=== PATIENT | female | born 1985 | race African-American/Black ===

== ENCOUNTER 2016-12-21 23:12 | Emergency (ER) | payer MEDICAID ==
[~2016-12-21] VITALS: Ht 165.1 cm; Wt 89.0 kg
[~2016-12-21 23:12] MED LIST: IRONCAP2 PO; LEVA500T PO; ULTR50TA PO
[2016-12-21 23:13] VITALS: BP 125/82; PULSE 78; RESP 16; TEMP 98.1; O2SAT 99
--- NOTE | 2016-12-22 01:27 | PD ---
HPI Chief Complaint: Complaint Time Seen by Provider: 00:52 Travel History International Travel<30 days: No Contact w/Intl Traveler<30days: No Traveled to known affect area: No History of Present Illness HPI The patient is a 31 year old female who presents to the [facility] emergency department with a history of thick white vaginal discharge that she reports began a couple of days ago. The patient reports that she has a history of recurrent bacterial vaginosis and yeast infections. She denies having a primary care physician currently. She reports that she is currently in a monogamous relationship and has been in this relationship for the last year and a half. She denies having any pelvic pain. She reports that she did start having some vaginal bleeding today, however she is due for her menstrual cycle. Her last menstrual cycle was November 23. The patient reports having associated vaginal itching, inflammation and irritation. The patient denies any recent fevers, cough, congestion, neck pain, chest pain, shortness of breath, abdominal pain, vomiting, diarrhea, urinary symptoms, or neurologic symptoms. PFSH Past Medical History Narrative Medical The patient's past medical history is significant for recurrent bacterial vaginosis and yeast vaginitis. Medical History: Denies Significant Hx Diminished Hearing: No Immunizations Current: Yes ?: Not LMP: 11/23/16 : 3 Para: 3 Tubal Ligation: Yes Past Surgical History Narrative Surgical The patient's past surgical history is reportedly none. Social History Alcohol Use: Yes (OCC) Tobacco Use: No Substance Use: No Allergies-Medications (Allergen,Severity, Reaction): Uncoded Allergies: PUMPKIN (Allergy, Severe, Swelling, 08/31/14) Reported Meds & Prescriptions Reported Meds & Active Scripts Active Fluconazole 150 Mg Tab 150 Mg PO ONCE Levaquin 500 Mg Tab (Levofloxacin) 500 Mg Tab 500 Mg PO DAILY 7 Days Reported Iron Complex (Iron/Minerals/Multivitamins) Cap 1 Cap PO DAILY Ultram (Tramadol HCl) 50 Mg Tab 50 Mg PO Q4H PRN Review of Systems General / Constitutional: No: Fever Eyes: No: Visual changes HENT: No: Headaches Cardiovascular: No: Chest Pain or Discomfort Respiratory: No: Shortness of Breath Gastrointestinal: No: Abdominal Pain Genitourinary: Positive: Discharge, Vaginal Bleeding, No: Urgency, Frequency, Dysuria, Flank Pain Musculoskeletal: No: Pain Skin: No Rash Neurologic: No: Weakness Psychiatric: No: Depression Endocrine: No: Polydipsia Hematologic/Lymphatic: No: Easy Bruising Physical Exam Narrative General: The patient is a well-developed well-nourished female in no acute distress. Head and Neck exam: Head is normocephalic atraumatic. Eyes: Pupils are equal round and reactive to light. Nose: Midline septum with pink mucous membranes Mouth: Dentition unremarkable. Moist mucus membranes. Posterior oropharynx is not erythematous. No tonsillar hypertrophy. Uvula midline. Airway patent. Neck: No palpable lymphadenopathy. No nuchal rigidity. No thyromegaly. Cardiovascular: Regular rate and rhythm without murmurs, gallops, or rubs. Lungs: Clear to auscultation bilaterally. No wheezes, rhonchi, or rales. Abdomen: Soft, without tenderness to palpation in all 4 quadrants of the abdomen. No guarding, rebound, or rigidity. Normal bowel sounds are audible. Extremities: No clubbing, cyanosis, or edema. Back: No costovertebral angle tenderness to palpation. Neurologic Exam: Grossly nonfocal. Skin Exam: No rash noted. Intact skin that is warm and dry. Gynecologic exam: The patient was placed in the dorsal lithotomy position. Her external genitalia were examined. She has some vaginal inflammation, no other lesions The speculum was placed into her vagina and the cervix was identified. She has some vaginal bleeding pooling in the posterior vaginal vault consistent with her menstrual cycle. No cervical friability. On Bimanual exam: she has no cervical motion tenderness. No adnexal tenderness or prominence noted on palpation. No uterine tenderness or enlargement noted on palpation. Data Data Last Documented VS Vital Signs Date Time Temp Pulse Resp B/P Pulse Ox O2 Delivery O2 Flow Rate FiO2 12/21/16 23:13 98.1 78 16 125/82 99 Orders Gc And Chlamydia Pcr (12/22/16 00:53) Wet Prep Profile (12/22/16 00:53) Urinalysis - C+S If Indicated (12/22/16 00:53) Ed Urine Pregnancytest Poc (12/22/16 00:53) Labs Laboratory Tests Test 12/22/16 01:30 Urine Color YELLOW Urine Turbidity HAZY Urine pH 7.5 Urine Specific [place] 1.020 Urine Protein TRACE mg/dL Urine Glucose (UA) NEG mg/dL Urine Ketones NEG mg/dL Urine Occult Blood MOD Urine Nitrite NEG Urine Bilirubin NEG Urine Urobilinogen 2.0 MG/DL Urine Leukocyte Esterase LARGE Urine RBC 2 /hpf Urine WBC 3 /hpf Urine Squamous Epithelial 2 /hpf Cells Urine Amorphous Sediment OCC Urine Bacteria RARE /hpf Urine Mucus FEW /lpf Microscopic Urinalysis Comment CULT NOT INDICATED Clue Cells (Wet Prep) NONE SEEN Vaginal Trichomonas (Wet Prep) NONE SEEN Vaginal Yeast (Wet Prep) PRESENT MDM Medical Decision Making Medical Screen Exam Complete: Yes Emergency Medical Condition: Yes Medical Record Reviewed: Yes Differential Diagnosis Yeast vaginitis, versus bacterial vaginosis, versus gonorrhea, versus chlamydia , versus trichomoniasis Narrative Course During the course of the patients emergency department visit, the patients history, examination, and differential diagnosis were reviewed with the patient. The patient had a pelvic examination done and a wet prep, GC chlamydia collected, urinalysis sent to lab. The patients laboratory studies were reviewed and remarkable for urinalysis is unremarkable, no significant signs of infection. Wet prep is positive for yeast. The patient will be discharged home with a prescription for Diflucan and 1 refill. The patient was instructed regarding the importance of following up with a wedding coordinator. The patient was given the name of the wedding coordinator on-call , Dr. Henderson for follow-up. The patient is resting comfortably and feels better, is alert and in no distress. The patients results and examination findings were discussed with the patient. The repeat examination is unremarkable and benign. The history, exam, diagnostic testing, and current condition do not suggest any significant pathology to warrant further testing, continued ED treatment, admission, or surgical evaluation at this point. The vital signs have been stable. The patient does not have uncontrollable pain, intractable vomiting, or other significant symptoms. The patient's condition is stable and appropriate for discharge. The patient will pursue further outpatient evaluation with a primary care physician or other designated or consulting physician as indicated in the discharge instructions. The patient expressed understanding and was agreeable with this plan. Diagnosis Primary Impression: Yeast vaginitis Referrals: Kenia Henderson MD 1 week Patient Instructions: General Instructions, Oral Candidiasis (GEN) Med/Other Pt SpecificInfo: Prescription(s) given Scripts Fluconazole 150 Mg Otc930 Mg PO ONCE #1 TAB Ref 1 Prov:Katie Nieves MD 12/22/16 Disposition: 01 DISCHARGE HOME Condition: Stable Katie Nieves MD Dec 22, 2016 01:27
[2016-12-22 01:44] LABS: BACTERIA, URINE RARE /hpf; BLOOD, URINE MOD (NEG); COMMENT (UR) CULT NOT INDICATED; CULTURE IF INDICATED CULT NOT INDICATED; GLUCOSE,URINE NEG (NEG); KETONE, URINE NEG (NEG); MUCUS URINE FEW /lpf (OCC); NITRITE,URINE NEG (NEG); PH, URINE 7.5 (5.0-8.5); SQUAMOUS EPITHELIAL CELL URINE 2 /hpf (0-5); URINE COLOR YELLOW (YELLW/STRAW)
[2016-12-22] MEDS ORDERED: FLUC150T PO (02:06)
[2016-12-22 03:25] LABS: CHLAMYDIA PCR NOT DETECTED (NOT DETECT); NEISSERIA PCR NOT DETECTED (NOT DETECT)
== END 2016-12-22 03:23 | disposition home or self-care (01) ==
LOC: NEPE 23:12
DX: B37.3 Candidiasis of vulva and vagina (principal)
CPT/HCPCS: 81001; 87210; 87491; 87591; 99283

== ENCOUNTER 2017-09-22 08:21 | Emergency (ER) | payer MEDICAID ==
[~2017-09-22] VITALS: Ht 165.1 cm; Wt 89.0 kg
[~2017-09-22 08:21] MED LIST changes: +FLUC150T PO
[2017-09-22 08:24] VITALS: BP 120/78; PULSE 79; RESP 16; TEMP 98.8; O2SAT 97
--- NOTE | 2017-09-22 09:32 | PD ---
HPI Chief Complaint: Cold / Flu Symptoms Time Seen by Provider: 09:23 Travel History International Travel<30 days: No Contact w/Intl Traveler<30days: No Traveled to known affect area: No History of Present Illness HPI 32-year-old female presents to the emergency room for evaluation of fever, cough , sore throat, congestion, earache, body aches, and headache for the past 3 days. Maximum temperature at home was 102. She has been taking TheraFlu and other [id number] cold medications with moderate relief in symptoms. States she went to work today and they sent her home early because she appeared to be cystic. Denies chronic medical conditions or daily medications. Patient states she has had her flu shot this year. PFSH Past Medical History Diminished Hearing: No Immunizations Current: Yes ?: Not LMP: 08/24/17 : 3 Para: 3 Tubal Ligation: Yes Social History Alcohol Use: Yes (OCC) Tobacco Use: No Substance Use: No Allergies-Medications (Allergen,Severity, Reaction): Uncoded Allergies: PUMPKIN (Allergy, Severe, Swelling, 08/31/14) Reported Meds & Prescriptions Reported Meds & Active Scripts Active Review of Systems Except as stated in HPI: all other systems reviewed are Neg Physical Exam Narrative GENERAL: Well-nourished, well-developed female in no acute distress. Afebrile. Ambulatory. SKIN: Focused skin assessment warm/dry. HEAD: Normocephalic. EYES: No scleral icterus. No injection or drainage. NECK: Supple, trachea midline. No JVD or lymphadenopathy. EARS: Bilateral pinnae and external canals appear within normal limits. Bilateral tympanic membranes without erythema, dullness or perforation. ENT: Mucosa pink and moist. Mild erythema of the pharynx without edema or exudates. No uvular edema. No uvular, palatal, or tonsillar deviation. Airway patent. Nasal turbinates appear normal without nasal blood, purulent drainage or septal hematoma. CARDIOVASCULAR: Regular rate and rhythm without murmurs, gallops, or rubs. RESPIRATORY: Breath sounds equal bilaterally. No accessory muscle use. No crackles, rales, or wheezes. Mild rhonchi bilaterally. Data Data Last Documented VS Vital Signs Date Time Temp Pulse Resp B/P (MAP) Pulse Ox O2 Delivery O2 Flow Rate FiO2 09/22/17 08:24 98.8 79 16 120/78 (92) 97 Orders Orders Influenzae A/B Antigen (09/22/17 09:29) MDM Medical Decision Making Medical Screen Exam Complete: Yes Emergency Medical Condition: Yes Medical Record Reviewed: Yes Differential Diagnosis URI, pneumonia, flu, strep Narrative Course 32-year-old otherwise healthy female presents to the emergency room for evaluation of cold and flu symptoms for the past 3 days. She is afebrile and well-appearing in the emergency room. Vital signs stable. Physical exam reveals rhonchi in bilateral lung lauren. Mild erythematous pharynx. Rapid influenza is negative. This is viral upper respiratory infection. Patient discharged with instructions to follow up with PCP or return for worsening symptoms. She understands and agrees to plan. Diagnosis Primary Impression: URI (upper respiratory infection) Qualified Codes: J00 - Acute nasopharyngitis [common cold] Referrals: Primary Care Physician Departure Forms: Tests/Procedures, Work Release Enter return to work date: Sep 24, 2017 Additional Instructions: [id number] cough and cold medications as directed. Follow-up with PCP. Return for worsening symptoms. Scripts No Active Prescriptions or Reported Meds Disposition: 01 DISCHARGE HOME Condition: Stable Naomi Akbar Sep 22, 2017 09:32
== END 2017-09-22 10:45 | disposition home or self-care (01) ==
LOC: NEPK 08:21
DX: J00 Acute nasopharyngitis [common cold] (principal)
CPT/HCPCS: 87804; 99283